=== PATIENT | female | born 1955 | race Caucasian/White ===

== ENCOUNTER → 2020-01-15 | Outpatient (CLI) | payer MEDICARE ==
[~2020-01-15] MED LIST: ADAL40SY SQ; CALC600T6 PO; GLUC-11 PO; KRIL500C PO; LEVO112T50 PO; MULT-245 PO; OMEP20TA63 PO; POLY17PO5 PO; VALA500T9 PO
== END | disposition home or self-care (01) ==
LOC: LAB 07:41
PROVIDERS: ATTEND Nurse Anesthetist, Certified Registered
DX: Z20.828 Contact with and (suspected) exposure to other viral communicable diseases (principal)
CPT/HCPCS: U0003-CS

== ENCOUNTER → 2020-01-19 | Day surgery (SDC) | payer MEDICARE ==
[~2020-01-19] MED LIST changes: +IPRATRPIUM/ALBUTEROL 0.5/2.5MG 3 ML NEBU. NEB PRN; +IV RINGERS SOLUTION,LACTATED 1,000 ML IV SCH; +MIDAZOLAM HCL PF 2 MG/2 ML VIAL. IV ONE; +ONDANSETRON PF 4 MG/2 ML VIAL. IV PRN; +PROPOFOL 10,000 MCG/ML (20ML) VIAL IV ONE
[2020-01-19 10:30] VITALS: BP 144/84
--- NOTE | 2020-01-20 15:08 | PATHOLOGY ---
[facility] Accession Number: [id number] . 01 Material submitted: . PART A: stomach - GASTRIC BX PART B: esophagus - DISTAL ESOPHAGUS-REFLUX. Modifiers: distal PART C: colon - 60CM COLON BX PART D: colon - 50CM COLON BX PART E: colon - 40CM COLON BX PART F: colon - 30CM COLON BX PART G: colon - 20CM PART H: colon - 10CM . 01 Clinical history: . EGD AND COLONOSCOPY A. R/O H PYLORI . 02 Diagnosis: A. Gastric biopsies: - No significant pathologic abnormalities. . B. Esophageal biopsies, distal esophagus: - Hyperplastic squamous esophageal mucosa consistent with reflux esophagitis. . C. Colon biopsies, 60 cm: - Colonic mucosa negative for active chronic colitis or dysplasia. . D. Colon biopsies, 50 cm: - Colonic mucosa negative for active chronic colitis or dysplasia. . E. Colon biopsies, 40 cm: - Colonic mucosa negative for active chronic colitis or dysplasia. . F. Colon biopsies, 30 cm: - Colonic mucosa negative for active chronic colitis or dysplasia. . G. Colon biopsies, 20 cm: - Colonic mucosa negative for active chronic colitis or dysplasia. . H. Colon biopsies, 10 cm: - Colonic mucosa negative for active chronic colitis or dysplasia. (JPM:[facility] 01/20/2020) [facility] 01/20/2020 1433 Local . 02 Comment: Sections of the gastric biopsy reveal gastric antral/body transition mucosa showing congestion and no significant inflammation. A properly controlled immunoperoxidase stain for Helicobacter is negative for Helicobacter organisms. . Sections of the distal esophageal biopsy reveal segments of tangentially oriented, hyperplastic squamous esophageal mucosa consistent with reflux esophagitis. There is no evidence of Ly's change, dysplasia, or malignancy. . Sections of the colon biopsies at 60 cm, 50 cm, 40 cm, 30 cm, 20 cm, and 10 cm appear similar and reveal multiple segments of colonic mucosa. The mucosa largely appears histologically normal. There is only focal crypt architectural distortion in the biopsies at 20 cm and 10 cm. There is no evidence of an active chronic colitis. There is no dysplasia or evidence of malignancy. (JPM:[facility] 01/20/2020) . Special stain performed: Immunoperoxidase for Helicobacter on A1 . 02 Electronically signed: . Rodolfo Parsons MD, Pathologist NPI- [id number] . 01 Gross description: . A. The specimen is received in formalin, labeled "Xie, Shanna, gastric BX" and consists of 2 fragments of pink-dudley tissue measuring 0.3 x 0.2 cm and 0.6 x 0.3 cm which are entirely submitted in A1. . B. The specimen is received in formalin, labeled "Xie, Shanna, distal esophagus BX" and consists of a translucent fragment of pink tissue measuring 0.4 x 0.2 cm and 0.6 x 0.4 cm which are entirely submitted in B1. . C. The specimen is received in formalin, labeled "Xie, Shanna, 60 cm colon BX" and consists of multiple fragments of dudley tissue measuring 0.8 x 0.8 x 0.2 cm in aggregate which are entirely submitted in C1. . D. The specimen is received in formalin, labeled "Xie, Shanna, 50 cm colon BX" and consists of 3 fragments of pink-dudley tissue measuring between 0.2 x 0.2 cm and 0.9 x 0.2 cm which are entirely submitted in D1. . E. The specimen is received in formalin, labeled "Xie, Shanna, 40 cm colon BX" and consists of multiple fragments of dudley tissue measuring 1.0 x 0.7 x 0.2 cm in aggregate which are entirely submitted in E1. . F. The specimen is received in formalin, labeled "Xie, Shanna, 30 cm colon BX" and consists of 4 fragments of pink-dudley tissue measuring 1.1 x 0.3 x 0.2 cm in aggregate which are entirely submitted in F1. . G. The specimen is received in formalin, labeled "Xie, Shanna, 20 cm colon BX" and consists of multiple fragments of dudley tissue measuring 1.0 x 0.5 x 0.2 cm in aggregate which are entirely submitted in G1. . H. The specimen is received in formalin, labeled "Shanna Xie, 10 cm colon BX" and consists of 3 fragments of pink-dudley tissue measuring between 0.2 x 0.2 cm and 0.3 x 0.2 cm which are entirely submitted in H1. (SDY; 01/19/2020) SYU/SYU 01/19/2020 1751 Local . 02 Pathologist provided ICD-10: Z12.11 . 02 CPT . 950088, 656931, 330878, 289516, 617802, 400801, 268217, [id number], [id number] Specimen Comment: A courtesy copy of this report has been sent to [phone], [phone] Specimen Comment: [id number] Specimen Comment: Report sent to / DR PATRICK Performed at: 01 [facility] [address], [place] [id number] MD Sergio Phelps MD Phone: [phone] Performed at: 02 [facility] [address] [place], [place] [id number] MD Rodolfo Parsons MD Phone: [phone]
== END | disposition home or self-care (01) ==
LOC: SURG 08:02
PROVIDERS: ATTEND Emergency Medicine
DX: Z12.11 Encounter for screening for malignant neoplasm of colon (principal); K21.0 Gastro-esophageal reflux disease with esophagitis; K51.00 Ulcerative (chronic) pancolitis without complications; K51.40 Inflammatory polyps of colon without complications; R12 Heartburn; Z88.8 Allergy status to other drugs, medicaments and biological substances; Z79.899 Other long term (current) drug therapy
CPT/HCPCS: 43239; 45380; 88305; 88342; J2704

== ENCOUNTER → 2021-02-15 | Outpatient (CLI) | payer MEDICARE ==
[2020-01-19 10:30] VITALS: BP 144/84
[~2021-02-15] MED LIST changes: -CALC600T6 PO; +CALC600T60 PO; -IPRATRPIUM/ALBUTEROL 0.5/2.5MG 3 ML NEBU. NEB PRN; -IV RINGERS SOLUTION,LACTATED 1,000 ML IV SCH; -MIDAZOLAM HCL PF 2 MG/2 ML VIAL. IV ONE; -ONDANSETRON PF 4 MG/2 ML VIAL. IV PRN; -PROPOFOL 10,000 MCG/ML (20ML) VIAL IV ONE
--- NOTE | 2021-02-15 11:03 | RAD ---
AP and Lateral Views of the Chest 02/15/2021 10:39 AM Indication: Reason: COUGH Comparison: None Findings: Mild chronic appearing interstitial coarsening noted. Heart size is top normal. No pneumoth orax or pleural effusion is seen. No focal infiltrate is seen. No acute osseous changes are seen. IMPRESSION: No evidence of acute cardiopulmonary process Electronically signed by: Azam Groves MD (02/15/2021 11:01 AM) [id number]
== END ==
LOC: RAD 10:30
PROVIDERS: ATTEND Specialist
DX: R05.9 Cough, unspecified (principal)
CPT/HCPCS: 71046